=== PATIENT | female | born 1990 | race Caucasian/White ===

== ENCOUNTER 2018-02-11 06:47 | Emergency (ER) | payer MEDICAID ==
[~2018-02-11 06:47] MED LIST: DOXY100T PO; PERC7.5T13 PO; Z.0.NO CURRENT MEDS
[2018-02-11 06:51] VITALS: BP 132/62; PULSE 92; RESP 16; TEMP 97.9; O2SAT 98
[2018-02-11] MEDS ORDERED: KETOROLAC TROMETHAMINE 30 MG/ML (IVP) VIAL IVP ONE (07:45)
[2018-02-11] MEDS ORDERED: SODIUM CHLOR 0.9% 1000 ML INJ 1,000 ML IV SCH (07:45)
[2018-02-11] MEDS ORDERED: SODIUM CHLORIDE 0.9% FLUSH 10 ML FLUSH IV FLUSH PRN (07:45)
[2018-02-11] MEDS ORDERED: ONDANSETRON HCL 4 MG/2 ML VIAL IVP ONE (07:45)
--- NOTE | 2018-02-11 08:04 | PD ---
HPI Chief Complaint: Abdominal Pain Time Seen by Provider: 07:38 Travel History International Travel<30 days: No Contact w/Intl Traveler<30days: No Traveled to known affect area: No History of Present Illness HPI Patient is a 27-year-old female who comes in complaining of lower abdominal pain. She says she woke up this morning, had a bowel movement, and then had sharp pain to her lower abdomen. She did not take anything for her symptoms. She says the pain is worse after using the bathroom. She has had some nausea and vomiting. She said her bowel movement was normal. She denies any vaginal discharge. She denies any fever or chills. Severity is mild to moderate. PFSH Past Medical History Autoimmune Disease: No Anxiety: No Depression: No Cardiovascular Problems: Yes (HEART MURMUR) Diminished Hearing: No Genitourinary: No Musculoskeletal: No Neurologic: No Psychiatric: No Reproductive: No Respiratory: No Immunizations Current: Yes ?: Unknown : 0 Para: 0 Miscarriage: 0 : 0 Past Surgical History Other Surgery: No Social History Alcohol Use: Yes (occ) Tobacco Use: No Substance Use: No Allergies-Medications (Allergen,Severity, Reaction): Coded Allergies: Sulfa (Sulfonamide Antibiotics) (Unverified Allergy, Severe, Bradycardia, 02/11/18) sulfamethoxazole (Unverified Allergy, Severe, Rash, 02/11/18) trimethoprim (Unverified Allergy, Severe, Rash, 02/11/18) Reported Meds & Prescriptions Reported Meds & Active Scripts Active No Active Prescriptions or Reported Medications Review of Systems Except as stated in HPI: all other systems reviewed are Neg General / Constitutional: No: Fever, Chills HENT: No: Headaches, Lightheadedness Cardiovascular: No: Chest Pain or Discomfort Respiratory: No: Shortness of Breath Gastrointestinal: Positive: Nausea, Vomiting, Abdominal Pain Musculoskeletal: No: Myalgias, Edema Skin: No Rash, No Change in Pigmentation Neurologic: No: Weakness, Dizziness Physical Exam Narrative GENERAL: Awake, alert, status SKIN: Focused skin assessment warm/dry. HEAD: Atraumatic. Normocephalic. EYES: Pupils equal and round. No scleral icterus. ENT: Mucous membranes pink and moist. NECK: Trachea midline. No JVD. CARDIOVASCULAR: Regular rate and rhythm. No murmur appreciated. RESPIRATORY: No accessory muscle use. Clear to auscultation. Breath sounds equal bilaterally. GASTROINTESTINAL: Abdomen soft, nondistended. Tender difficult patient diffusely in the abdomen. No rebound or guarding. MUSCULOSKELETAL: No obvious deformities. No clubbing. No cyanosis. No edema. NEUROLOGICAL: Awake and alert. No obvious cranial nerve deficits. Motor grossly within normal limits. Normal speech. PSYCHIATRIC: Appropriate mood and affect; insight and judgment normal. Data Data Last Documented VS Vital Signs Date Time Temp Pulse Resp B/P (MAP) Pulse Ox O2 Delivery O2 Flow Rate FiO2 02/11/18 10:33 77 18 103/55 (71) 98 Room Air 02/11/18 06:51 97.9 Orders Orders Complete Blood Count With Diff (02/11/18 07:45) Comprehensive Metabolic Panel (02/11/18 07:45) Lipase (02/11/18 07:45) Urinalysis - C+S If Indicated (02/11/18 07:45) Ct Abd/Pel W Iv Contrast(Rout) (02/11/18 07:45) Iv Access Insert/Monitor (02/11/18 07:45) Ecg Monitoring (02/11/18 07:45) Oximetry (02/11/18 07:45) Ondansetron Inj (Zofran Inj) (02/11/18 07:45) Sodium Chlor 0.9% 1000 Ml Inj (Ns 1000 M (02/11/18 07:45) Sodium Chloride 0.9% Flush (Ns Flush) (02/11/18 07:45) Ketorolac Inj (Toradol Inj) (02/11/18 07:45) Ed Urine Pregnancytest Poc (02/11/18 07:45) Iohexol 350 Inj (Omnipaque 350 Inj) (02/11/18 09:20) Us Pelvis Comp Manager Heart Failure/Non-Preg (02/11/18 ) Acetamin-Hydrocod 325-5 Mg ([place] 5-325 (02/11/18 12:00) Labs Laboratory Tests Test 02/11/18 07:53 White Blood Count 8.1 TH/MM3 Red Blood Count 4.49 MIL/MM3 Hemoglobin 14.4 GM/DL Hematocrit 41.5 % Mean Corpuscular Volume 92.3 FL Mean Corpuscular Hemoglobin 32.1 PG Mean Corpuscular Hemoglobin Concent 34.8 % Red Cell Distribution Width 12.8 % Platelet Count 289 TH/MM3 Mean Platelet Volume 8.7 FL Neutrophils (%) (Auto) 61.8 % Lymphocytes (%) (Auto) 28.1 % Monocytes (%) (Auto) 7.6 % Eosinophils (%) (Auto) 1.7 % Basophils (%) (Auto) 0.8 % Neutrophils # (Auto) 5.0 TH/MM3 Lymphocytes # (Auto) 2.3 TH/MM3 Monocytes # (Auto) 0.6 TH/MM3 Eosinophils # (Auto) 0.1 TH/MM3 Basophils # (Auto) 0.1 TH/MM3 CBC Comment DIFF FINAL Differential Comment Urine Color YELLOW Urine Turbidity CLEAR Urine pH 6.0 Urine Specific Cecilia 1.015 Urine Protein NEG mg/dL Urine Glucose (UA) NEG mg/dL Urine Ketones NEG mg/dL Urine Occult Blood NEG Urine Nitrite NEG Urine Bilirubin NEG Urine Urobilinogen LESS THAN 2.0 MG/DL Urine Leukocyte Esterase NEG Urine RBC 2 /hpf Urine WBC LESS THAN 1 /hpf Urine Squamous Epithelial Cells 1 /hpf Urine Bacteria FEW /hpf Urine Mucus MOD /lpf Microscopic Urinalysis Comment CULT NOT INDICATED Blood Urea Nitrogen 10 MG/DL Creatinine 0.78 MG/DL Random Glucose 91 MG/DL Total Protein 7.8 GM/DL Albumin 3.8 GM/DL Calcium Level 8.8 MG/DL Alkaline Phosphatase 47 U/L Aspartate Amino Transf (AST/SGOT) 17 U/L Alanine Aminotransferase (ALT/SGPT) 20 U/L Total Bilirubin 0.2 MG/DL Sodium Level 139 MEQ/L Potassium Level 4.1 MEQ/L Chloride Level 107 MEQ/L Carbon Dioxide Level 24.9 MEQ/L Anion Gap 7 MEQ/L Estimat Glomerular Filtration Rate 90 ML/MIN Lipase 102 U/L [facility] Medical Decision Making Medical Screen Exam Complete: Yes Emergency Medical Condition: Yes Medical Record Reviewed: Yes Differential Diagnosis colitis vs UTI vs ovarian cyst Narrative Course Patient is a 27 year old female who comes in complaining of lower abdominal pain. Exam shows tenderness to the lower abdomen. IV established, labs sent. Labs show no acute abnormalities. Given IVF, Toradol. CT abd/pelvis performed shows bilateral ovarian cysts with possible compression of the fallopian tube. US of the pelvis performed shows the cysts, no complications. Last 24 hours Impressions Abdomen/Pelvis CT 02/11/18 0748 Signed Impressions: Service Date/Time: Sunday, February 11, 2018 09:23 - CONCLUSION: Cystic masses both adnexa regions with possible tubal dilatation on the right.. Trace free fluid. Todd Shrestha MD FACR Given norco for continued pain. Advised to follow up with gynecology. Given a prescription for pain medicine. Advised she can take Aleve as well for pain. Advised to return at any time for any worsening symptoms. Diagnosis Primary Impression: Ovarian cyst Qualified Codes: N83.201 - Unspecified ovarian cyst, right side; N83.202 - Unspecified ovarian cyst, left side Patient Instructions: General Instructions, Ovarian Cyst (ED) Additional Instructions: Follow up with gynecology to ensure resolution of the cysts. Take Aleve as needed for pain. You can take a norco for severe pain. Return to the ED as needed for any worsening symptoms. Scripts Hydrocodone-Acetaminophen ([place]) 5 Mg-325 Mg Tab 1 TAB PO Q6H Y for PAIN, #10 TAB 0 Refills Prov: Julieta De Leon MD 02/11/18 Disposition: 01 DISCHARGE HOME Condition: Stable Julieta De Leon MD Feb 11, 2018 08:04
[2018-02-11 08:11] LABS: BASOPHIL # 0.1 TH/MM3 (0-0.2); BASOPHIL % 0.8 % (0.0-2.0); EOSINOPHIL # 0.1 TH/MM3 (0-0.4); EOSINOPHIL % 1.7 % (0.0-4.0); HEMATOCRIT 41.5 % (35.0-46.0); HEMOGLOBIN 14.4 GM/DL (11.6-15.3); LYMPH % 28.1 % (9.0-44.0); LYMPHOCYTE # 2.3 TH/MM3 (1.0-4.8); MEAN CELL VOLUME 92.3 FL (80.0-100.0); MEAN CORPUSCULAR HEMOGLOBIN 32.1 PG (27.0-34.0); MEAN CORPUSCULAR HGB CONC 34.8 % (32.0-36.0); MEAN PLATELET VOLUME 8.7 FL (7.0-11.0); MONO % 7.6 % (0.0-8.0); MONOCYTE # 0.6 TH/MM3 (0-0.9); NEUT % 61.8 % (16.0-70.0); PLATELET COUNT 289 TH/MM3 (150-450); RED BLOOD COUNT 4.49 MIL/MM3 (4.00-5.30); RED CELL DISTRIBUTION WIDTH 12.8 % (11.6-17.2); WHITE BLOOD COUNT 8.1 TH/MM3 (4.0-11.0)
[2018-02-11 08:36] LABS: ALBUMIN 3.8 GM/DL (3.4-5.0); AST (GOT) 17 U/L (15-37); BICARBONATE 24.9 MEQ/L (21.0-32.0); BLOOD UREA NITROGEN 10 MG/DL (7-18); CALCIUM 8.8 MG/DL (8.5-10.1); CHLORIDE 107 MEQ/L (98-107); CREATININE 0.78 MG/DL (0.50-1.00); GLOMERULAR FILTRATION RATE 90 ML/MIN (>89); GLUCOSE,RANDOM 91 MG/DL (74-106); SODIUM (NA) 139 MEQ/L (136-145)
[2018-02-11 08:39] LABS: ALKALINE PHOSPHATASE 47 U/L (45-117); ALT (GPT) 20 U/L (10-53); TOTAL BILIRUBIN ADULT 0.2 MG/DL (0.2-1.0); TOTAL PROTEIN 7.8 GM/DL (6.4-8.2)
[2018-02-11 08:43] LABS: BACTERIA, URINE FEW /hpf; BILIRUBIN, URINE NEG (NEG); BLOOD, URINE NEG (NEG); GLUCOSE,URINE NEG (NEG); KETONE, URINE NEG (NEG); MUCUS URINE MOD /lpf (OCC); NITRITE,URINE NEG (NEG); SQUAMOUS EPITHELIAL CELL URINE 1 /hpf (0-5); URINE COLOR YELLOW (YELLW/STRAW); URINE LEUKOCYTE ESTERASE NEG (NEG)
[2018-02-11] MEDS ORDERED: IOHEXOL 350 MG/ML 10 ML VIAL (for RAD DIAG) IVCONTRAST ONE (09:20)
--- NOTE | 2018-02-11 09:42 | RADRPT ---
EXAM DATE/TIME: 02/11/2018 09:23 [facility] COMPARISON: No previous studies available for comparison. INDICATIONS : Lower abdomen pain today. IV CONTRAST: 85 cc Omnipaque 350 (iohexol) IV ORAL CONTRAST: No oral contrast ingested. RADIATION DOSE: 5.64 CTDIvol (mGy) MEDICAL HISTORY : None SURGICAL HISTORY : None. ENCOUNTER: Initial ACUITY: 1 day PAIN SCALE: 7/10 LOCATION: Bilateral lower quadrant TECHNIQUE: Volumetric scanning of the abdomen and pelvis was performed. Using automated exposure control and ad justment of the mA and/or kV according to patient size, radiation dose was kept as low as reasonably achievable to obtain optimal diagnostic quality images. DICOM format image data is available electro nically for review and comparison. FINDINGS: The lower lungs are clear. The liver and gallbladder are unremarkable The spleen and pancreas appear normal The adrenals and kidneys are unremarkable There is no adenopathy The terminal ileum and colon appear unremarkable. There are cystic masses in both adnexa regions 3.1 cm on the left and 3 cm on the right. Trace fluid is present. Dilated tubes cannot be excluded. Uterus is unremarkable Bladder appears normal There is no inguinal adenopathy Review of bone windows reveals only degenerative changes. CONCLUSION: Cystic masses both adnexa regions with possible tubal dilatation on the right.. Trac e free fluid. Todd Shrestha MD FACR on February 11, 2018 at 9:38 Board Certified Radiologist. This report was verified electronically.
[2018-02-11 10:33] VITALS: BP 103/55; PULSE 77; RESP 18; O2SAT 98
--- NOTE | 2018-02-11 11:38 | RADRPT ---
EXAM DATE/TIME: 02/11/2018 10:41 [facility] COMPARISON: No previous studies available for comparison. INDICATIONS : Lower quadrant pain. MEDICAL HISTORY : None. SURGICAL HISTORY : None. ENCOUNTER: Initial ACUITY: 1 day PAIN SCORE: 9/10 LOCATION: Bilateral lower quadrant MEASUREMENTS: UTERUS: 10.0 x 6.6 x 5.2 cm ENDOMETRIAL STRIPE: 4 mm RIGHT OVARY: 3.2 x 2.0 x 2.0 cm LEFT OVARY: 5.0 x 2.9 x 3.0 cm FINDINGS: UTERUS: The myometrium has homogeneous echotexture without mass. RIGHT OVARY: 2.3 cm right ovarian cyst LEFT OVARY: 3.9 cm cyst in MISCELLANEOUS: Trace free fluid. No tubal dilatation. CONCLUSION: Bilateral ovarian cyst with trace fluid Todd Shrestha MD FACR on February 11, 2018 at 11:35 Board Certified Radiologist. This report was verified electronically.
[2018-02-11] MEDS ORDERED: NORC5TAB PO (12:00)
[2018-02-11] MEDS ORDERED: ACETAMINOPHEN/HYDROcodone 325 MG/5 MG TAB PO ONE (12:00)
== END 2018-02-11 12:22 | disposition home or self-care (01) ==
LOC: NEPE 06:47
DX: N83.201 Unspecified ovarian cyst, right side (principal); N83.202 Unspecified ovarian cyst, left side
CPT/HCPCS: 74177; 76856; 80053; 81001; 83690; 84703; 85025; 96361; 96374; 96375; 99285; J1885; J2405; J7030; Q9967

== ENCOUNTER 2018-06-07 07:23 | Inpatient (IN) ==
[2018-06-07] MEDS ORDERED: Sod Chloride 0.9% Inj 1,000 ML IV.SIG ONE (08:40)
[2018-06-07] MEDS ORDERED: Dexamethasone PF Inj 10 MG/ML Vial IV.PUSH ONE (08:40)
--- NOTE | 2018-06-07 08:44 | ED ---
HPI General Chief complaint: Dental/Oral Stated complaint: Throat Complaint Time Seen by Provider: 06/07/18 08:40 History of Present Illness HPI narrative: Patient comes emergency department complaining of sore throat 2 days. Patient states last night she began feeling like her left tonsil started swelling making it difficult for her to swallow and breathe. Patient describes pain as pressure-like in nature that radiates her left ear when she swallows which is a sharp stabbing pain. Patient denies any fevers, chest pain, shortness of breath, loss change in bowel or bladder, , or known sick contacts. Patient reports taking [id number] medications for symptomatic relief with little to no improvement in symptoms. Pain is worse with swallowing and coughing. Today when she woke this morning she felt like her uvula was swollen. Related Data Home Medications Medication Instructions Recorded Confirmed No Known Home Medications 06/07/18 06/07/18 Allergies Allergy/AdvReac Type Severity Reaction Status Date / Time Sulfa (Sulfonamide Allergy Severe Bradycardia Verified 06/07/18 08:54 Antibiotics) sulfamethoxazole Allergy Severe Rash Verified 06/07/18 08:54 trimethoprim Allergy Severe Rash Verified 06/07/18 08:54 Review of Systems ROS: all other systems reviewed are negative [facility] Medical History Medical History Patient denies medical problems (Acute) Surgical History Surgical History No history of previous surgery (Acute) Social History Social History Substance History: No History of Abuse Smoking Status: Never smoker How Often Do You Have a Drink Containing Alcohol: Never Recent Travel in [facility] within the Last 8 Weeks: No Recent Out of Country Travel within the Last 8 Weeks: No Immunization History Tetanus Immunization: <5 Years Exam Narrative Exam Narrative: GENERAL: Well-developed, well nourished, in no acute distress, and non-ill appearing. SKIN: Focused skin assessment warm and dry. HEAD: Atraumatic. Normocephalic. EYES: Pupils equal and round. EOMI. No scleral icterus. No injection or drainage. ENT: No nasal bleeding or discharge. Mucous membranes pink and moist. Tympanic membranes pearly quan bilaterally. Posterior pharynx mild erythematous minimal edematous tonsils left greater than right. Uvula is erythematous and edematous. Patient has mild hot potato voice. No trismus. Swallowing own saliva. NECK: Trachea midline. Cervical lymphadenopathy noted. Supple. No nuclear rigidity. CARDIOVASCULAR: Regular rate and rhythm. No murmur appreciated. RESPIRATORY: No accessory muscle use. No respiratory distress. Clear to auscultation. Breath sounds equal bilaterally. MUSCULOSKELETAL: No obvious deformities. No clubbing. No cyanosis. No edema. Full range of motion. NEUROLOGICAL: Awake and alert. No obvious cranial nerve deficits. Motor grossly within normal limits. PSYCHIATRIC: Appropriate mood and affect; insight and judgment normal. Course Consultations Consultation #1: Discussed patient with Dr. Meek, ENT on-call, recommends admitting patient to medicine and continuing Decadron 10 mg every 8 along with Unasyn, Zosyn, or clindamycin. Will consult on patient. Time: 14:15 Consultation #2: Discussed patient with Dr. Pisano, who is agreeable to admit the patient. Time: 14:40 Initial Documented Vital Signs Temperature 98.5 F 06/07/18 07:34 Pulse Rate 104 H 06/07/18 07:34 Respiratory Rate 16 06/07/18 07:34 Blood Pressure 123/65 06/07/18 07:34 Pulse Oximetry 96 06/07/18 07:34 Last Documented Vital Signs Temperature 98.5 F 06/07/18 07:34 Pulse Rate 97 H 06/07/18 13:12 Respiratory Rate 16 06/07/18 13:12 Blood Pressure 121/73 06/07/18 13:12 Pulse Oximetry 98 06/07/18 13:12 Medical Decision Making MDM Narrative Medical decision making narrative: Patient seen and examined. IV was established patient placed on cardiac monitoring. Patient was given IV Decadron , which improved her symptoms. Patient was then given IV Toradol for pain upon review of CT scan patient started on IV Unasyn. Call was placed to on-call ENT , who is agreeable to consult on patient. Discussed all findings and plan of care with patient is agreeable for admission. Discussed patient with hospitalist is agreeable to admit the patient. Discussed patient with Dr. De Leon, who is in agreement plan of care and disposition. Patient remained stable throughout ED course. POC Test Results POC Urine Results: Negative Lab Data Lab results reviewed: Yes I reviewed the patient's lab results. Result diagrams: 06/07/18 08:58 06/07/18 08:58 Lab Results 06/07/18 06/07/18 Range/Units 08:58 08:58 WBC 14.3 H (4.0-11.0) th/mm3 RBC 4.52 (4.00-5.30) mil/mm3 Hgb 14.3 (11.6-15.3) gm/dL Hct 42.6 (35.0-46.0) % MCV 94.3 (80.0-100.0) fL MCH 31.6 (27.0-34.0) pg MCHC 33.5 (32.0-36.0) % RDW 12.8 (11.6-17.2) % Plt Count 308 (150-450) th/mm3 MPV 8.2 (7.0-11.0) fL Neut % (Auto) 80.4 H (16.0-70.0) % Lymph % (Auto) 12.0 (9.0-44.0) % Josephine % (Auto) 6.0 (0.0-8.0) % Eos % (Auto) 1.1 (0.0-4.0) % Baso % (Auto) 0.5 (0.0-2.0) % Neut # (Auto) 11.5 H (1.8-7.7) th/mm3 Lymph # (Auto) 1.7 (1.0-4.8) th/mm3 Josephine # (Auto) 0.9 (0.0-0.9) th/mm3 Eos # (Auto) 0.2 (0.0-0.4) th/mm3 Baso # (Auto) 0.1 (0.0-0.2) th/mm3 WBC Differential . Differential Comment Auto diff final Sodium 138 (136-145) meq/L Potassium 3.8 (3.5-5.1) meq/L Chloride 103 (98-107) meq/L Carbon Dioxide 26.1 (21.0-32.0) meq/L Anion Gap 9 (5-15) meq/L BUN 6 L (7-18) mg/dL Creatinine 0.62 (0.50-1.00) mg/dL Estimated GFR Greater than 89 (>89) mL/min Random Glucose 91 (74-106) mg/dL Calcium 9.5 (8.5-10.1) mg/dL Imaging Data Radiologist's impression: Soft Tissue Neck CT 06/07/18 08:40 CONCLUSION: 1. CT findings characteristic of a developing 1.7 cm left tonsillar abscess. 2. Enlarged and edematous uvula. 3. No associated adenopathy. Discharge Plan Discharge Disposition Patient Disposition: 30 Still Patient Discharge Details Diagnosis: Tonsil, abscess, Swollen uvula Physicians Team ED Provider: Julieta De Leon ED Midlevel Provider: Justyn Reynolds Primary Care Provider: Primary Care Meaghan Valdivia Attending Provider: Agustin Pisano Other Providers: Huan Meek Status ED Status: Admitted Patient
[2018-06-07 09:02] LABS: Baso # (Auto) 0.1 th/mm3 (0.0-0.2); Baso % (Auto) 0.5 % (0.0-2.0); Eos # (Auto) 0.2 th/mm3 (0.0-0.4); Eos % (Auto) 1.1 % (0.0-4.0); Hematocrit 42.6 % (35.0-46.0); Hemoglobin 14.3 gm/dL (11.6-15.3); Lymph # (Auto) 1.7 th/mm3 (1.0-4.8); Mean Corpuscular HGB Conc 33.5 % (32.0-36.0); Mean Corpuscular Hemoglobin 31.6 pg (27.0-34.0); Mean Corpuscular Volume 94.3 fL (80.0-100.0); Mean Platelet Volume 8.2 fL (7.0-11.0); Mono # (Auto) 0.9 th/mm3 (0.0-0.9); Neut # (Auto) 11.5 th/mm3 (1.8-7.7); Neut % (Auto) 80.4 % (16.0-70.0); Platelet Count 308 th/mm3 (150-450); Red Blood Count 4.52 mil/mm3 (4.00-5.30); Red Cell Distribution Width 12.8 % (11.6-17.2); White Blood Count 14.3 th/mm3 (4.0-11.0)
[2018-06-07 09:24] LABS: Anion Gap 9 meq/L (5-15); Blood Urea Nitrogen 6 mg/dL (7-18); Calcium 9.5 mg/dL (8.5-10.1); Carbon Dioxide 26.1 meq/L (21.0-32.0); Chloride 103 meq/L (98-107); Glomerular Filtration Rate Greater Than 89 mL/min (>89); Glucose,Random 91 mg/dL (74-106); Potassium 3.8 meq/L (3.5-5.1); Sodium 138 meq/L (136-145)
[2018-06-07] MEDS ORDERED: Ketorolac Inj 30 MG/ML (IVP) Vial IV.PUSH ONE (12:34)
[2018-06-07] MEDS ORDERED: Ampicillin/Sulbactam Inj 3 GM in Sodium Chloride 0.9% Inj 100 ML IV.SIG ONE (13:12)
--- NOTE | 2018-06-07 13:40 | CT ---
EXAM DATE: 06/07/2018 1:09 PM EDT AGE/SEX: 28 years / Female INDICATIONS: Left tonsil pain, inability to swallow. CLINICAL DATA: This is the patient's initial encounter. Patient reports that signs and symptoms have been present for 1 day and indicates a pain score of 4/10. MEDICAL/SURGICAL HISTORY: None. None. RADIATION DOSE: 14.80 CTDI (mGy) COMPARISON: [facility], CT CERVICAL SPINE W/O CONTRAST, 02/23/2013. . TECHNIQUE: Helical acquisition was performed using a multirow detector CT scanner during the adminis tration of 90 ml Omnipaque 350 (iohexol) nonionic water-soluble contrast as a single exam dose. Usi ng automated exposure control and adjustment of the mA and/or kV according to patient size, radiation dose was kept as low as reasonably achievable to obtain optimal diagnostic quality images. DICOM fo rmat image data is available electronically for review and comparison. FINDINGS: Nasopharynx: The nasopharyngeal airway has a normal configuration. No mucosal thickening or mass is seen. Oropharynx: The intrinsic muscles of the tongue are symmetric. 1.7 cm hypodensity in the left tonsi llar region is characteristic of a developing tonsillar abscess. The uvula also appears to be [place] us and enlarged. Larynx: The supraglottic, glottic, and infraglottic structures are intact. Parapharyngeal: The parapharyngeal space is intact. Salivary Glands: The parotid and submandibular glands are intact. Lymph Nodes: No enlarged or necrotic-appearing nodes. Thyroid: Homogeneous enhancement without evidence of nodule. Bones: Unremarkable. Post Contrast: No abnormal areas of enhancement seen. CONCLUSION: 1. CT findings characteristic of a developing 1.7 cm left tonsillar abscess. 2. Enlarged and edematous uvula. 3. No associated adenopathy. Electronically signed by: Jmaar Pereira MD 06/07/2018 1:39 PM EDT
[2018-06-07] MEDS ORDERED: Bisacodyl 10 MG Supp RECTAL PRN (14:46)
[2018-06-07] MEDS ORDERED: Acetaminophen 325 MG Tablet PO PRN ×2 (14:46→14:47)
[2018-06-07] MEDS ORDERED: Naloxone Inj 0.4 MG/ML Vial IV.PUSH PRN (14:47)
[2018-06-07] MEDS ORDERED: Ketorolac Inj 30 MG/ML (IVP) Vial IV.PUSH PRN ×2 (14:47)
[2018-06-07] MEDS: Sod Chloride 0.9% Inj 1,000 ML IV.CONT SCH (15:38)
[2018-06-07] MEDS: Morphine Inj 4 MG/ML Vial IV.PUSH PRN ×3 (15:39→21:08)
--- NOTE | 2018-06-07 16:48 | P.HP ---
History of Present Illness Primary Care Physician: No Primary Care Physician History of Present Illness: This is a 28-year-old female with no significant past medical history. Family history of diabetes mellitus patient presents to the emergency department planing of sore throat for 4 days. States it is difficult and painful to swallow. It is a sharp left throat pain radiating to the left ear when she swallows. No fever, chills, nausea or vomiting. She took [id number] medications with no significant improvement. CT scan shows left tonsillar abscess and has been started on IV Unasyn and dexamethasone was recommended by ENT. Strep screen negative. All other systems reviewed negative Inpatient Certification: I certify that the inpatient services were ordered in accordance with Medicare regulations governing the order. This includes certification that hospital inpatient services are reasonable and necessary and in the case of services not specified as inpatient-only under 42 CFR 419.22(n), that they are appropriately provided as inpatient services in accordance to with the 2-midnight benchmark under 43 CFR 412.3(e) Estimated Total Length of Stay (Days): 2 Plans for Post Hospital Care: Not yet determined Review of Systems All other systems reviewed negative except as [facility] - History History Provided By: Patient - Medical History Medical History: Medical History (Last Reviewed 06/07/18 @ 08:44 by LES Marshall) Patient denies medical problems - Surgical History Surgical History: Surgical History (Last Updated 06/07/18 @ 08:38 by Porsche Marquez) No history of previous surgery - Tobacco History Smoking Status: Never smoker - Alcohol History How Often Do You Have a Drink Containing Alcohol: Never - Substance Use History Substance History: No History of Abuse - Travel History Recent Travel in the [place] Within the Last 8 Weeks: No Recent Travel Out of the Country Within the Last 8 Weeks: No - Immunization History Tetanus Immunization: <5 Years Medications and Allergies Active Medications: Active Medications Acetaminophen (Tylenol) 650 mg PO Q4H PRN PRN Reason: Temp > 100.4 Acetaminophen (Tylenol) 650 mg PO Q6HR PRN PRN Reason: PAIN SCALE 1 TO 2 Al Hydroxide/Mg Hydroxide (Milk Of Magnesia Liq) 30 ml PO Q12H PRN PRN Reason: Mild Constipation Bisacodyl (Dulcolax Supp) 10 mg RECTAL DAILY PRN PRN Reason: SEVERE CONSITIPATION Dexamethasone Sodium Phosphate (Decadron Inj) 10 mg IV.PUSH Q8H [facility] Last Admin: 06/07/18 15:57 Dose: 10 mg Ampicillin Sodium/Sulbactam (Sodium 3 gm/ Sodium Chloride) 100 mls @ 200 mls/ hr IV.SIG Q6H JESSI Sodium Chloride (Ns Inj) 1,000 mls @ 100 mls/hr IV.CONT .Q10H [facility] Last Admin: 06/07/18 15:38 Dose: 100 mls/hr Ketorolac Tromethamine (Toradol Inj) 15 mg IV.PUSH Q6H PRN PRN Reason: PAIN 3-5; IF UABLE TO TAKE PO Stop: 06/12/18 14:46 Ketorolac Tromethamine (Toradol Inj) 30 mg IV.PUSH Q6H PRN PRN Reason: PAIN 6-10;IF UNABLE TO TAKE PO Stop: 06/12/18 14:46 Lactulose (Lactulose Liq) 30 ml PO DAILY PRN PRN Reason: SEVERE CONSITIPATION Morphine Sulfate (Morphine Inj) 1 mg IV.PUSH Q3H PRN PRN Reason: BREAKTHROUGH PAIN Last Admin: 06/07/18 15:39 Dose: 1 mg Naloxone HCl (Narcan Inj) 0.4 mg IV.PUSH UNSCH PRN PRN Reason: SEE LABEL COMMENTS Ondansetron HCl (Zofran Inj) 4 mg IV.PUSH Q6H PRN PRN Reason: NAUSEA OR VOMITING Senna/Docusate Sodium (Kayli-Colace) 1 tab PO BID JESSI Sennosides (Senokot) 17.2 mg PO Q12H PRN PRN Reason: Moderate Constipation Sodium Chloride (Ns Flush) 2 ml IV.FLUSH PRN PRN PRN Reason: FLUSH AFTER USING IV ACCESS Allergies Allergy/AdvReac Type Severity Reaction Status Date / Time Sulfa (Sulfonamide Allergy Severe Bradycardia Verified 06/07/18 08:54 Antibiotics) sulfamethoxazole Allergy Severe Rash Verified 06/07/18 08:54 trimethoprim Allergy Severe Rash Verified 06/07/18 08:54 Home Medications Medication Instructions Recorded Confirmed Type No Known Home Medications 06/07/18 06/07/18 History Exam Vital signs: Vital Signs 06/07/18 07:34 06/07/18 13:12 06/07/18 15:48 Temperature 98.5 F 98.4 F Pulse Rate 104 H 97 H 90 Respiratory Rate 16 16 17 Blood Pressure 123/65 121/73 123/87 Pulse Oximetry 96 98 98 Intake & Output 06/06/18 06/07/18 06/07/18 18:59 06:59 18:59 Weight 61.235 kg Narrative: GENERAL: Well-developed well-nourished in no distress SKIN: Warm and dry. HEAD: Atraumatic. Normocephalic. EYES: Pupils equal and round. No scleral icterus. No injection or drainage. ENT: No nasal bleeding or discharge. Mucous membranes pink and moist. Posterior pharynx mild erythema edematous tonsils worse on the left NECK: Trachea midline. No JVD. CARDIOVASCULAR: Regular rate and rhythm. RESPIRATORY: No accessory muscle use. Clear to auscultation. Breath sounds equal bilaterally. GASTROINTESTINAL: Abdomen soft, non-tender, nondistended. MUSCULOSKELETAL: Extremities without clubbing, cyanosis, or edema. No obvious deformities. NEUROLOGICAL: Awake and alert. No obvious cranial nerve deficits. Motor grossly within normal limits. Five out of 5 muscle strength in the arms and legs. Normal speech. PSYCHIATRIC: Appropriate mood and affect; insight and judgment normal. Results - Labs CBC & Chem 7: 06/07/18 08:58 06/07/18 08:58 Labs: Laboratory Results - last 24 hr 06/07/18 06/07/18 08:58 08:58 WBC 14.3 H RBC 4.52 Hgb 14.3 Hct 42.6 MCV 94.3 MCH 31.6 MCHC 33.5 RDW 12.8 Plt Count 308 MPV 8.2 Neut % (Auto) 80.4 H Lymph % (Auto) 12.0 Lares % (Auto) 6.0 Eos % (Auto) 1.1 Baso % (Auto) 0.5 Neut # (Auto) 11.5 H Lymph # (Auto) 1.7 Lares # (Auto) 0.9 Eos # (Auto) 0.2 Baso # (Auto) 0.1 WBC Differential . Differential Comment Auto diff final Sodium 138 Potassium 3.8 Chloride 103 Carbon Dioxide 26.1 Anion Gap 9 BUN 6 L Creatinine 0.62 Estimated GFR Greater than 89 Random Glucose 91 Calcium 9.5 - Imaging Impressions Soft Tissue Neck CT 06/07/18 08:40 CONCLUSION: 1. CT findings characteristic of a developing 1.7 cm left tonsillar abscess. 2. Enlarged and edematous uvula. 3. No associated adenopathy. Caprini VTE Risk Assessment Caprini VTE Risk Assessment: No/Low Risk (score <= 1) Caprini Risk Assessment Model: Point Value = 1 Point Value = 2 Point Value = 3 Point Value = 5 Age 41-60 Minor surgery BMI > 25 kg/m2 Swollen legs Varicose veins or History of unexplained or recurrent spontaneous Oral contraceptives or hormone replacement Sepsis (< 1 month) Serious lung disease, including pneumonia (< 1 month) Abnormal pulmonary function Acute myocardial infarction Congestive heart failure (< 1 month) History of inflammatory bowel disease Medical patient at bed rest Age 61-74 Arthroscopic surgery Major open surgery (> 45 min) Laparoscopic surgery (> 45 min) Malignancy Confined to bed (> 72 hours) Immobilizing plaster cast Central venous access Age >= 75 History of VTE Family history of VTE Factor V Leiden Prothrombin [id number] Lupus anticoagulant Anticardiolipin antibodies Elevated serum homocysteine Heparin-induced thrombocytopenia Other congenital or acquired thrombophilia Stroke (< 1 month) Elective arthroplasty Hip, pelvis, or leg fracture Acute spinal cord injury (< 1 month) Prophylaxis Regimen: Total Risk Factor Score Risk Level Prophylaxis Regimen 0-1 Low Early ambulation 2 Moderate Order ONE of the following: *Sequential Compression Device (SCD) *Heparin 5000 units SQ BID 3-4 Higher Order ONE of the following medications: *Heparin 5000 units SQ TID *Enoxaparin/Lovenox 40 mg SQ daily (WT < 150 kg, CrCl > 30 mL/min) *Enoxaparin/Lovenox 30 mg SQ daily (WT < 150 kg, CrCl > 10-29 mL/min) *Enoxaparin/Lovenox 30 mg SQ BID (WT < 150 kg, CrCl > 30 mL/min) AND/OR *Sequential Compression Device (SCD) 5 or more Highest Order ONE of the following medications: *Heparin 5000 units SQ TID (Preferred with Epidurals) *Enoxaparin/Lovenox 40 mg SQ daily (WT < 150 kg, CrCl > 30 mL/min) *Enoxaparin/Lovenox 30 mg SQ daily (WT < 150 kg, CrCl > 10-29 mL/min) *Enoxaparin/Lovenox 30 mg SQ BID (WT < 150 kg, CrCl > 30 mL/min) AND *Sequential Compression Device (SCD) Assessment and Plan - Plan This is a 28-year-old female who presents to the emergency department planing of sore throat for 4 days. Left tonsillar abscess with sepsis. Continue IV Unasyn and dexamethasone, start liquid diet and advance as tolerated, IV hydration and pain management with IV Toradol and morphine as needed. ENT will be consulted. Low risk for DVT
[2018-06-07] MEDS: Senna/Docusate Sodium 8.6/50 MG Tablet PO SCH (20:13)
[2018-06-07] MEDS: Ampicillin/Sulbactam Inj 3 GM in Sodium Chloride 0.9% Inj 100 ML IV.SIG SCH (20:19)
--- NOTE | 2018-06-07 21:30 | MB ---
cc: Huan Meek MD DATE: 06/07/2018 CHIEF COMPLAINT: Peritonsillar cellulitis. HISTORY OF PRESENT ILLNESS: The patient is a pleasant 28-year-old female with multiple day history of worsening sore throat. She was seen in the emergency room. CAT scan showed a developing left peritonsillar infection, with no definitive abscess at all. She was admitted, given IV fluids, antibiotics and steroids. Pain has gone down from a 10/10 to a 4/10. Airway stable and she is tolerating orals. PHYSICAL EXAMINATION: The patient is a well adult. Flexible fiberoptic laryngoscopy revealed a widely patent airway and mild cellulitis on the left peritonsillar area, with no fluctuance at all. ASSESSMENT AND PLAN: Left peritonsillar cellulitis, no distinct abscess. RECOMMENDATIONS: The patient received antibiotics starting today. Recommend the patient continue IV antibiotics and steroids and to be discharged ideally on Tuesday morning if stable, and to continue upon discharge with an oral 2-week course of antibiotics and oral Medrol Dosepak discharge ideally on Tuesday morning. The patient will followup with ENT as needed afterwards. Huan Meek MD [facility]/ , 08:47 PM , 08:52 PM
[2018-06-08] MEDS: Morphine Inj 4 MG/ML Vial IV.PUSH PRN ×2 (00:04→06:24)
[2018-06-08] MEDS: Sod Chloride 0.9% Inj 1,000 ML IV.CONT SCH (03:01)
[2018-06-08] MEDS: Ampicillin/Sulbactam Inj 3 GM in Sodium Chloride 0.9% Inj 100 ML IV.SIG SCH ×2 (03:02→09:33)
[2018-06-08 09:22] VITALS: BP 93/53; PULSE 94; RESP 17; TEMP 97.2; O2SAT 99
[2018-06-08] MEDS: Senna/Docusate Sodium 8.6/50 MG Tablet PO SCH (09:33)
--- NOTE | 2018-06-08 11:21 | P.PN ---
Subjective Interval history: F/u tonsillar abscess. She feels much better tolerating regular diet begging to go home. Physical Exam Vital signs: Vital Signs 06/07/18 13:12 06/07/18 15:48 06/07/18 16:00 Temperature 98.4 F 98.2 F Pulse Rate 97 H 90 97 H Respiratory Rate 16 17 18 Blood Pressure 121/73 123/87 117/80 Pulse Oximetry 98 98 100 06/07/18 20:00 06/08/18 00:00 06/08/18 05:13 Temperature 97.7 F 97.5 F L 97.5 F L Pulse Rate 95 H 82 77 Respiratory Rate 21 20 18 Blood Pressure 114/65 113/64 100/59 L Pulse Oximetry 97 98 100 06/08/18 08:00 Temperature 97.2 F L Pulse Rate 94 H Respiratory Rate 17 Blood Pressure 93/53 L Pulse Oximetry 99 Intake & Output 06/07/18 06/08/18 06/08/18 18:59 06:59 18:59 Intake Total 2200 / 2200 Balance 2200 / 2200 Weight 61.235 kg 61.23 kg Intake: IV 1200 / 1200 NS Inj 1,000 ML @ 100 mls/hr IV 1000 / 1000 .CONT .Q10H JESSI Rx#:[id number] Unasyn Inj 3 GM In NS Inj 100 200 / 200 ML @ 200 mls/hr IV.SIG Q6H JESSI Rx#:[id number] Oral 1000 / 1000 Other: # Voids 4 Narrative: GENERAL: Well-developed well-nourished in no distress SKIN: Warm and dry. ENT: No nasal bleeding or discharge. Mucous membranes pink and moist. Posterior pharynx no erythema NECK: Trachea midline. No JVD. CARDIOVASCULAR: Regular rate and rhythm. RESPIRATORY: No accessory muscle use. Clear to auscultation. Breath sounds equal bilaterally. GASTROINTESTINAL: Abdomen soft, non-tender, nondistended. MUSCULOSKELETAL: Extremities without clubbing, cyanosis, or edema. No obvious deformities. NEUROLOGICAL: Awake and alert. No obvious cranial nerve deficits. Motor grossly within normal limits. Five out of 5 muscle strength in the arms and legs. Normal speech. Results - Labs CBC & Chem 7: 06/07/18 08:58 06/07/18 08:58 Microbiology 06/07/18 08:58 Throat Group A Streptococcus Screen (JOANNE) - Final - Imaging Impressions Soft Tissue Neck CT 06/07/18 08:40 CONCLUSION: 1. CT findings characteristic of a developing 1.7 cm left tonsillar abscess. 2. Enlarged and edematous uvula. 3. No associated adenopathy. - Procedures Fiberoptic laryngoscopy Assessment and Plan - Plan This is a 28-year-old female who presents to the emergency department planing of sore throat for 4 days. Left tonsillar tonsillitis with sepsis. Clinically much improved switch to p.o. medications tolerating regular diet. Patient will be discharged home on Augmentin for a total of 14 days and prednisone. Follow-up with ENT outpatient. Low risk for DVT Discharge Planning: Discharge patient to home. She is clinically much improved earlier than anticipated Condition on discharge: Improved Regular Diet as tolerated Ad Betty activity no driving Rx written: Augmentin and prednisone Follow-up with primary care physician and ENT
[2018-06-08] MEDS ORDERED: Amoxicillin/Clavulanate 875/125 MG Tablet PO SCH (21:00)
[2018-06-09] MEDS ORDERED: predniSONE 20 MG Tablet PO SCH (09:00)
== END 2018-06-08 11:50 | disposition home or self-care (01) ==
LOC: NEPD 07:23 → NEDA 14:59 → N07 16:46
PROVIDERS: ADMIT Internal Medicine; ATTEND Internal Medicine